=== PATIENT | female | born 1985 | race Two or more races ===

== ENCOUNTER 2023-10-26 18:38 | Emergency (ER) | payer OTHER, SELFPAY ==
--- NOTE | 2023-10-26 19:01 | ECG_ITS ---
Test Reason : DIZZY Blood Pressure : / mmHG Vent. Rate : 076 BPM Atrial Rate : 076 BPM P-R Int : 160 ms QRS Dur : 080 ms QT Int : 390 ms P-R-T Axes : 055 006 012 degrees QTc Int : 438 ms Normal sinus rhythm Septal infarct , age undetermined Abnormal ECG When compared with ECG of 09-APR-2006 07:43, Septal infarct is now Present Referred By: Ab Ireland Electronically Signed By:JOSÉ NARAYAN MD
[2023-10-26 19:07] VITALS: BP 134/80; BP 146/96; PULSE 78; PULSE 80; RESP 20; TEMP 37.3; O2SAT 97; O2SAT 98; BMI 33.9
[2023-10-26] MEDS: 0.9 % Sodium Chloride 1,000 ML 999 ML IV (19:13)
[2023-10-26] MEDS: Metoclopramide HCl 10 MG/2 ML VIAL IVPUSH (19:16)
[2023-10-26 19:18] VITALS: BP 134/80; PULSE 75; RESP 18; TEMP 37.3; O2SAT 97
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
[2023-10-26 19:53] VITALS: BP 134/80; PULSE 75; RESP 18; TEMP 37.3; O2SAT 97
== END 2023-10-26 19:59 | disposition home or self-care (01) ==
PROVIDERS: Emergency Provider Internal Medicine
DX: R42 Dizziness and giddiness (principal); R11.2 Nausea with vomiting, unspecified; Z77.098 Contact with and (suspected) exposure to other hazardous, chiefly nonmedicinal, chemicals
CPT/HCPCS: 93005; 96374; 99284; 99285; J2765

== ENCOUNTER → 2023-10-26 19:01 | Outpatient (BNV) | payer OTHER, SELFPAY | PROVIDERS: Emergency Provider Internal Medicine; Visit Provider Internal Medicine Cardiovascular Disease | DX: R94.31 Abnormal electrocardiogram [ECG] [EKG] (principal) | CPT/HCPCS: 93010 ==